=== PATIENT | male | born 1990 | race American Indian/Alaskan Native ===

== ENCOUNTER 2017-04-23 02:03 | Emergency (ER) | payer SELFPAY ==
[2017-04-23 02:13] VITALS: RESP 18; TEMP 97.9
--- NOTE | 2017-04-23 02:29 | ED PDOC ---
HPI: Psych/Substance Abuse Time Seen by Provider: 04/23/17 02:06 Chief Complaint (Nursing): Alcohol Ingestion Chief Complaint (Provider): ETOH History Per: Patient Additional Complaint(s): Per EMS, pt was found asleep in a chair outside a restaurant. Pt admits to drinking [place] tonight. No falls, no pain, no nausea nor vomiting. Past Medical History Reviewed: Nursing Documentation, Vital Signs Vital Signs: Last Vital Signs Temp 97.9 F 04/23/17 02:10 Pulse 89 04/23/17 02:10 Resp 18 04/23/17 02:10 BP 133/77 04/23/17 02:10 Pulse Ox 99 04/23/17 02:10 - Medical History PMH: No Chronic Diseases - Surgical History Surgical History: No Surg Hx - Family History Family History: States: Unknown Family Hx - Allergies Allergies/Adverse Reactions: Allergies Allergy/AdvReac Type Severity Reaction Status Date / Time No Known Allergies Allergy Verified 04/23/17 02:09 Review of Systems ROS Statement: Except As Marked, All Systems Reviewed And Found Negative Physical Exam - Reviewed Nursing Documentation Reviewed: Yes Vital Signs Reviewed: Yes - Physical Exam Appears: Positive for: Well, Non-toxic, No Acute Distress Head Exam: Positive for: ATRAUMATIC, NORMAL INSPECTION, NORMOCEPHALIC Skin: Positive for: Normal Color, Warm, DRY Eye Exam: Positive for: EOMI, Normal appearance, PERRL ENT: Positive for: Normal ENT Inspection Neck: Positive for: Normal, Painless ROM Cardiovascular/Chest: Positive for: Regular Rate, Rhythm Respiratory: Positive for: CNT, Normal Breath Sounds Gastrointestinal/Abdominal: Positive for: Normal Exam, Bowel Sounds, Soft Back: Positive for: Normal Inspection Extremity: Positive for: Normal ROM Neurologic/Psych: Positive for: Alert, Oriented - Laboratory Results Result Diagrams: 04/23/17 02:39 04/23/17 02:39 - ECG O2 Sat by Pulse Oximetry: 99 Medical Decision Making Medical Decision Making: Diagnostics ordered. Pt medicated with Zofran 4 mg for nausea ETOH 279 Case endorsed to ED MD, Dr. Morales, pending clinical sobriety Disposition - Clinical Impression Clinical Impression: Alcohol use - Patient ED Disposition Is Patient to be Admitted: Transfer of Care - Disposition Disposition: Transfer of Care Disposition Time: 05:57 Condition: STABLE Forms: [facility] ([place]) - POA Present On Arrival: None
[2017-04-23 02:55] LABS: BASO # 0.1 K/uL (0.0-0.2); BASO % 0.8 % (0.0-2.0); EOS # 0.1 K/uL (0.0-0.7); EOS % 1.2 % (0.0-4.0); HEMATOCRIT 41.2 % (35.0-51.0); LYMPH # 2.9 K/uL (1.0-4.3); LYMPH % 39.5 % (20.0-40.0); MEAN CORPUSCULAR HEMOGLOBIN 32.6 pg (27.0-31.0); MONO # 0.3 K/uL (0.0-0.8); MONO % 4.4 % (0.0-10.0); NEUT # 3.9 K/uL (1.8-7.0); NEUT % 54.1 % (50.0-75.0); NRBC % 0.1 % (0.0-0.0); RED CELL DISTRIBUTION WIDTH 13.2 % (11.5-14.5); WHITE BLOOD COUNT 7.2 K/uL (4.8-10.8)
[2017-04-23 02:59] LABS: ALB/GLOB RATIO 1.6 (1.0-2.1); ALCOHOL SERUM 279 mg/dl (0-10); ALKALINE PHOSPHATASE 57 U/L (38-126); ALT/SGPT 30 U/L (21-72); AST/SGOT 27 U/L (17-59); BILIRUBIN,TOTAL 0.5 mg/dl (0.2-1.3); BLOOD UREA NITROGEN 11 mg/dl (9-20); CALCIUM 9.7 mg/dL (8.4-10.2); CARBON DIOXIDE 25 mmol/L (22-30); CHLORIDE 107 mmol/L (98-107); GFR AFRICAN-AMERICAN > 60; GLUCOSE,RANDOM 113 mg/dL (75-110); POTASSIUM 3.9 MMOL/L (3.6-5.0); SODIUM 146 mmol/l (132-148); TOTAL PROTEIN 8.1 G/DL (6.3-8.2)
--- NOTE | 2017-04-23 06:07 | ED PDOC ---
- Laboratory Results Result Diagrams: 04/23/17 02:39 04/23/17 02:39 - ECG O2 Sat by Pulse Oximetry: 99 Medical Decision Making Medical Decision Makin -Patient endorsed to me by Sudha FERRARI. -Pending sobriety. Disposition - Clinical Impression Clinical Impression: Alcohol abuse with intoxication - POA Present On Arrival: None - Disposition Disposition: Transfer of Care Disposition Time: 07:00 Condition: STABLE Instructions: Alcohol Intoxication (ED), At-Risk Alcohol Use (ED) Forms: [employer] (Amharic)
--- NOTE | 2017-04-23 08:24 | ED PDOC ---
- Laboratory Results Result Diagrams: 04/23/17 02:39 04/23/17 02:39 - ECG O2 Sat by Pulse Oximetry: 99 (RA) Pulse Ox Interpretation: Normal Medical Decision Making Medical Decision Makin:00 Patient was signed out to me by Tian Morales MD pending clinical sobriety. 08:23 Patient speaking full sentences with no slurred speech, gait is steady. Scribe Attestation: Documented by Mari Gross, acting as a scribe for Deon Baltzaar D.O. Provider Scribe Attestation: All medical record entries made by the Scribe were at my direction and personally dictated by me. I have reviewed the chart and agree that the record accurately reflects my personal performance of the history, physical exam, medical decision making, and the department course for this patient. I have also personally directed, reviewed, and agree with the discharge instructions and disposition. Disposition Counseled Patient/Family Regarding: Studies Performed, Diagnosis, Need For Followup - Clinical Impression Clinical Impression: Alcohol abuse with intoxication - POA Present On Arrival: None - Disposition Disposition: Routine/Home Disposition Time: 08:23 Condition: STABLE Instructions: Alcohol Intoxication (ED), At-Risk Alcohol Use (ED) Forms: [employer] ([place])
[2017-04-23 08:31] VITALS: BP 114/76; PULSE 79
[2017-04-23 08:33] VITALS: O2SAT 99
== END 2017-04-23 08:30 | disposition home or self-care (01) ==
LOC: H.ER 02:03
DX: F10.129 Alcohol abuse with intoxication, unspecified (principal)
CPT/HCPCS: 80053; 85025; 99283; G0480; J2405